=== PATIENT | female | born 1975 | race Hispanic/Latino ===

== ENCOUNTER 2025-05-09 10:55 | Emergency (ER) | payer OTHER ==
[~2025-05-09] VITALS: Ht 162.6 cm; Wt 79.4 kg
[2025-05-09 11:06] VITALS: TEMP 98.6
[2025-05-09] MEDS: SODIUM CHLORIDE 0.9% 1000ML 1,000 ML IV STA (11:49)
[2025-05-09] MEDS: LORAZEPAM INJ 2 MG/ML VIAL IV ONE (11:50)
[2025-05-09 11:58] LABS: BASOPHILS % 0.4 % (0.0-1.0); EOSINOPHILS % 0.6 % (0.0-6.0); LYMPHOCYTES % 27.7 % (18.0-39.1); MONOCYTES % 6.0 % (4.4-11.3); NEUTROPHILS % 65.1 % (38.7-80.0); RED CELL DISTRIBUTION WIDTH 13.6 % (11.7-14.4)
[2025-05-09 12:08] LABS: INR 0.87
[2025-05-09 12:12] LABS: EST GLOMERULAR FILTRATION RATE 110.0 ML/MIN (>=60)
[2025-05-09 13:08] VITALS: PULSE 73; RESP 16; O2SAT 98
== END 2025-05-09 14:00 | disposition home or self-care (01) ==
LOC: ER 11:05
DX: R06.02 Shortness of breath (principal); R00.2 Palpitations; F43.21 Adjustment disorder with depressed mood; E11.65 Type 2 diabetes mellitus with hyperglycemia; E78.5 Hyperlipidemia, unspecified
CPT/HCPCS: 36415; 71045; 80053; 83735; 83880; 84484; 85025; 85379; 85610; 85730; 93005; 99284; J2060; J7030